=== PATIENT | female | born 1980 | race African-American/Black ===

== ENCOUNTER 2017-03-07 15:28 | Emergency (ER) | payer MEDICAID ==
[~2017-03-07] VITALS: Ht 160 cm; Wt 70.3 kg
[~2017-03-07 15:28] MED LIST: HYDR-4663 PO
[2017-03-07 16:25] LABS: BUN/Creatinine Ratio 11.5; Bilirubin, Total 5.6 mg/dL (0.2-1.0); Calcium 10.2 mg/dL (8.5-10.1); Potassium 3.1 mmol/L (3.5-5.1); Total Protein 10.4 g/dL (6.4-8.2)
[2017-03-07 16:35] VITALS: BP 146/100
[2017-03-07 17:14] LABS: Basophils # (auto) 0 uL; CONDITION Y; Eosinophils # (auto) 0 uL; Lymphocytes # (auto) 0.8 uL; Lymphocytes % (auto) 8.5 % (10.0-50.0); Mean Corpuscular Hemoglobin 28.6 pg (28.0-32.0); Mean Corpuscular Volume 81.7 fL (80.0-100.0); Mean Platelet Volume 9.7 fL (7.4-10.4); Monocytes # (auto) 0.4 uL; Monocytes % (auto) 4.3 % (0.0-12.0); Neutrophils # (auto) 8.6 uL; Neutrophils % (auto) 87.2 % (37.0-80.0); Platelet Count (auto) 289 10^3/uL (140-450); Red Cell Distribution Width 17.8 % (11.6-16.0); White Blood Cell 9.9 10^3/uL (4.4-10.8)
[2017-03-07 17:15] LABS: Urine Color Yellow (Yellow); Urine Glucose Normal (Normal); Urine Hyaline Cast FEW /lpf (0 - 2); Urine Mucus FEW (None Seen); Urine Nitrite Negative (Negative); Urine RBC 1 /hpf (0 - 4); Urine Squamous Epithelial Cell FEW /hpf (<5)
[2017-03-07] MEDS ORDERED: HYDROmorphone HCL 2 MG/ML VL IM ONE (17:30)
[2017-03-07] MEDS ORDERED: ONDANSETRON HCL 4 MG/2 ML VIAL IM ONE (17:30)
[2017-03-07] MEDS ORDERED: SUMAtriptan SUCCINATE 6 MG/0.5 ML VL SC ONE (17:30)
[2017-03-07] MEDS ORDERED: POTASSIUM CHL 10% (20 MEQ/15ML) ORAL SOLN PO ONE (17:45)
[2017-03-07] MEDS ORDERED: SODIUM CHLORIDE 0.9% 1,000 ML IV ONE (17:45)
[2017-03-07 18:08] LABS: Urine Bilirubin POSITIVE (Negative); Urine Blood 1+ /uL (Negative); Urine Ketone 4+ (Negative)
== END 2017-03-07 19:03 | disposition home or self-care (01) ==
LOC: ER 15:37
DX: E86.0 Dehydration (principal); G43.909 Migraine, unspecified, not intractable, without status migrainosus; R17 Unspecified jaundice; F12.10 Cannabis abuse, uncomplicated
CPT/HCPCS: 36415; 80053; 81001; 81025; 85025; 93005; 96372; 99285; J1170; J2405; J3030

== ENCOUNTER 2019-02-17 11:03 | Emergency (ER) | payer MEDICAID ==
[~2019-02-17] VITALS: Ht 160 cm; Wt 78.5 kg
[~2019-02-17 11:03] MED LIST changes: -HYDR-4663 PO; +HYDR-4683 PO
[2019-02-17 12:27] LABS: Basophils # (auto) 0 uL; Basophils % (auto) 0.2 % (0.0-2.0); Eosinophils # (auto) 0.1 uL; Eosinophils % (auto) 0.7 % (0.0-7.0); Hematocrit 38.8 % (36.0-46.0); Hemoglobin 13.1 g/dL (12.2-16.2); Lymphocytes # (auto) 1.9 uL; Lymphocytes % (auto) 16.7 % (10.0-50.0); Mean Corpuscular Hemoglobin 28.5 pg (28.0-32.0); Mean Corpuscular Hgb Conc. 33.8 g/dL (32.0-36.0); Mean Corpuscular Volume 84.4 fL (80.0-100.0); Monocytes # (auto) 0.9 uL; Monocytes % (auto) 8.1 % (0.0-12.0); Neutrophils # (auto) 8.2 uL; Neutrophils % (auto) 74.3 % (37.0-80.0); Nucleated Red Blood Cells % 0.1 %; Platelet Count (auto) 206 10^3/uL (140-450); Red Cell Distribution Width 13.6 % (11.8-14.3); White Blood Cell 11.1 10^3/uL (4.4-10.8)
[2019-02-17 12:29] VITALS: BP 116/74
[2019-02-17 12:42] LABS: Albumin 4.1 g/dL (3.4-5.0); Calcium 9.4 mg/dL (8.5-10.1); Potassium 4.1 mmol/L (3.5-5.1)
[2019-02-17 12:44] LABS: BUN/Creatinine Ratio 9.8
[2019-02-17 12:47] LABS: Bilirubin, Total 1.9 mg/dL (0.2-1.0); Total Protein 7.6 g/dL (6.4-8.2)
[2019-02-17 12:57] LABS: Urine Bacteria FEW /hpf (None Seen); Urine Blood 2+ /uL (Negative); Urine Mucus FEW (None Seen); Urine Specific Gravity 1.015 (1.001-1.035); Urine WBC 179 /hpf (0 - 5); Urine WBC Clumps PRESENT /hpf (None Seen)
[2019-02-17] MEDS ORDERED: cefTRIAXone SOD 1,000 MG VL IM ONE (13:15)
[2019-02-17] MEDS ORDERED: KETOROLAC TROMETH 60MG/2ML VIAL IM ONE (13:15)
== END 2019-02-17 13:49 | disposition home or self-care (01) ==
LOC: ER 11:08
DX: N39.0 Urinary tract infection, site not specified (principal); K80.20 Calculus of gallbladder without cholecystitis without obstruction; F12.10 Cannabis abuse, uncomplicated
CPT/HCPCS: 36415; 74176; 80053; 81001; 81025; 83690; 85025; 96372; 99284; J0696; J1885

== ENCOUNTER 2021-12-11 21:46 | Emergency (ER) | payer OTHER, MEDICAID ==
[~2021-12-11 21:46] MED LIST changes: -HYDR-4683 PO; +HYDR-4833 PO
== END 2021-12-11 23:10 | disposition left against medical advice (07) ==
LOC: ER 21:46
DX: Z04.1 Encounter for examination and observation following transport accident (principal); Z79.899 Other long term (current) drug therapy; V89.2XXA Person injured in unspecified motor-vehicle accident, traffic, initial encounter; Y93.89 Activity, other specified; Y92.89 Other specified places as the place of occurrence of the external cause; Y99.8 Other external cause status